=== PATIENT | male | born 1965 | race Caucasian/White ===

== ENCOUNTER 2021-07-30 06:24 | Inpatient (IN) | payer OTHER ==
[~2021-07-30] VITALS: Ht 182.9 cm; Wt 124.8 kg
--- NOTE | ~2021-07-30 | EMS ---
[address] [address] EMS Patient Care Report Name: CALVIN RODRIGUEZ Room #: 364-P ADM IN M.R.#: [id number] Admission: 07/30/21 Attend Phys: Cassi Morales MD Discharge: Date of : 63 Report #: [id number] THIS REPORT FOR: //name// Report Transmitted: 07/30/2021 12:34 EMS Care Summary [place], [place]/[facility] Incident [id number] @ 07/30/2021 05:46 Incident Location [address] [place] [address] Patient CALVIN RODRIGUEZ Male, 56 Years 1965 Patient Address [address] [place], [place] [id number] Patient History Other,Diabetes,Hypertension (HTN),Seizures,Hyperlipidemia,Gastro-Esophageal Reflux Disease (GERD),Anemia,Hypothyroidism,Anoxic Brain Injury, Patient Allergies Other drug allergy,Demerol, Patient Medications Glucagon, Lantus, Protonix, Acetaminophen, Zofran, Clonidine, Lisinopril, Levothyroxine, Novolog, Lipitor, Hydrocodone, Reglan, Chief Complaint hypoglycemia Disposition Transported No Lights/[place] Dispatch Reason Diabetic Problem Transported To [facility] Narrative pt was found unresponsive w/ BGL of 30, by [place] staff. staff states they gave pt [address] [address] EMS Patient Care Report Name: CALVIN RODRIGUEZ Room #: 364-P [facility]#: [id number] Admission: 07/30/21 Attend Phys: Cassi Morales MD Discharge: Date of : 63 Report #: [id number] 2 doses of glucagon IM and juice [employer]PERVIS[employer]. they state they took pt BGL just [employer] and it was 37. pt now has eyes open and is yelling. our BGL reads LO. staff reports pt is brittle diabetic and this happens frequently. IV attempt is unsuccessful. pt to cot, VS. pt alert enough to swallow approx 1/2 of oral glucose paste, then becomes nauseated and vomits a small amount. recheck pt BGL- 90. pt transport to [facility]. no other changes enroute. report to staff on arrival. Initial Vitals @06:10GCS: 12,Glucose: 90, @05:58P: 100,R: 20,BP: 170/100,GCS: 10,Glucose: -1,SpO2: 96,Revised Trauma: 11, Assessments @06:17MENTAL:Confused,Other,SKIN:Diaphoresis,HEENT:Eyes: Right: Constricted,Head/Face: Other,LUNG SOUNDS:General: Vomiting,ABDOMEN:General: Vomiting,PELVIS//GI:EXTREMITIES:PULSE:Radial: 2+ Normal,NEURO:@06:13MENTAL:Confused,Other,SKIN:No Abnormalities,HEENT:LUNG SOUNDS:ABDOMEN:PELVIS//GI:EXTREMITIES:PULSE:NEURO: Impression Diabetic Hypoglycemia Procedures @05:56 ALS Assessment Response: Unchanged @06:06 Stretcher Response: Unchanged @06:10 3-Lead ECG Response: Unchanged @06:02 IV Therapy - Saline Lock 0cc (22 ga) Site: Hand-Right Response: UnchangedFailed @06:11 Oral Glucose - 12 Grams (gms) - Oral Response: Unchanged Timeline 05:44,Call Received 05:44,Dispatch Notified 05:46,Dispatched 05:49,En Route 05:53,On Scene 05:56,At Patient 05:56,ALS Assessment,Response: Unchanged 05:58,BP: 170/100 M,PULSE: 100,RR: 20 R,SPO2: 96 Ox,ETCO2: ,BG: -1,PAIN: ,GCS: 10, 06:02,IV Therapy - Saline Lock 0cc 22 ga Site: Hand-Right,Response: UnchangedFailed, 06:06,Stretcher,Response: Unchanged 06:10,BP: / M,PULSE: ,RR: R,SPO2: Ox,ETCO2: ,B,PAIN: ,GCS: 12, 06:10,3-Lead ECG,Response: [place] [address] EMS Patient Care Report Name: CALVIN RODRIGUEZ Room #: 364-P ADM IN M.R.#: [id number] Admission: 07/30/21 Attend Phys: Cassi Morales MD Discharge: Date of : 63 Report #: [id number] 06:11,Oral Glucose - 12 Grams (gms) - Oral,Response: Unchanged 06:13,Depart Scene 06:21,At Destination 06:39,Call Closed Disclaimer v1.1 Copyright 2020 [employer] This EMS Care Summary contains data elements from the applicable legal record (which may be displayed differently). It is designed to provide pertinent information for the following purposes: continuity of care, clinical quality, and state data reporting. The complete legal record is available to ED staff and administrators of the receiving hospital in [facility]'s Patient Tracker. All data is provided "as is."
[2021-07-30 06:25] VITALS: BP 201/103
[2021-07-30 09:17] LABS: HEMATOCRIT 43.4 % (42.0-52.0); HEMOGLOBIN 13.9 gm/dL (14.0-18.0); MCH 29.1 pg (26.0-34.0); MCHC 32.1 g/dL (28.0-37.0); MCV 90.8 fL (80.0-100.0); PLATELET COUNT 325 thou/uL (150-400); RBC 4.78 mil/uL (4.50-6.00); RDW 14.1 % (10.5-14.5); WBC 24.8 thou/uL (4.0-11.0)
[2021-07-30 09:22] LABS: CALCIUM 9.1 mg/dL (8.5-10.1); CREATININE 0.9 mg/dL (0.7-1.3)
[2021-07-30 09:25] LABS: POTASSIUM 4.8 mmol/L (3.5-5.1)
[2021-07-30 09:48] LABS: URINE BILIRUBIN NEGATIVE (Negative); URINE BLOOD 1+ (Negative); URINE CLARITY CLEAR; URINE COLOR YELLOW; URINE GLUCOSE-RANDOM* NEGATIVE (Negative); URINE KETONES NEGATIVE (Negative); URINE LEUKOCYTES-REFLEX NEGATIVE (Negative); URINE NITRITE-REFLEX NEGATIVE (Negative); URINE PROTEIN (DIPSTICK) 3+ (Negative); URINE SPECIFIC GRAVITY 1.025 (1.005-1.035); URINE UROBILINOGEN 0.2 E.U./dl (0.2-1.0)
[2021-07-30 10:18] LABS: CASTS None Seen /LPF (None Seen); MUCUS None Seen strn/LPF (None Seen); SQUAMOUS 0-3 Few /LPF (0-3)
[2021-07-30 10:19] LABS: BACTERIA-REFLEX 1-9 Few /HPF (None Seen); CRYSTALS None Seen /LPF (None Seen); URINE RBC 1-2 Rare /HPF (NONE SEEN); URINE WBC-REFLEX 0-5 Rare /HPF (0-5)
[2021-07-30 12:45] VITALS: BP 154/56
[2021-07-30 12:46] LABS: ABSOLUTE NEUTROPHILS 21.6 thou/uL (1.4-8.2)
[2021-07-30 12:47] LABS: ANISOCYTOSIS SLIGHT
[2021-07-30 12:58] VITALS: BP 153/60
[2021-07-30] MEDS ORDERED: LIPITOR40 MG PO (13:30)
[2021-07-30] MEDS ORDERED: AMITRIPTYLINE H25 M2 PO (13:30)
[2021-07-30] MEDS ORDERED: ASA81BEC PO (13:30)
[2021-07-30] MEDS ORDERED: CALCIUM500 MG PO (13:31)
[2021-07-30] MEDS ORDERED: COLACE100 MG PO (13:32)
[2021-07-30] MEDS ORDERED: CLONIDINE HCL0.1 MG PO (13:32)
[2021-07-30] MEDS ORDERED: DEPAKOTE 250MG250 MG PO (13:34)
[2021-07-30] MEDS ORDERED: IMODIUM A-D2 M1 PO (13:35)
[2021-07-30] MEDS ORDERED: LANTUS SUBQ ×2 (13:36→13:37)
[2021-07-30] MEDS ORDERED: LINZESS290 MCG PO (13:40)
[2021-07-30] MEDS ORDERED: TOPROL XL50 MG PO (13:41)
[2021-07-30] MEDS ORDERED: LISINOPRIL10 MG PO (13:41)
[2021-07-30] MEDS ORDERED: ONDANSETRON HCL4 M3 PO (13:42)
[2021-07-30] MEDS ORDERED: PROTONIX40 M4 PO (13:43)
[2021-07-30] MEDS ORDERED: TRANSDERM-SCOP1 EACH PAD (13:44)
[2021-07-30] MEDS ORDERED: SYNTHROID25 MC1 PO (13:45)
[2021-07-30] MEDS ORDERED: CARAFATE 1 GM TA1 GM PO (13:45)
[2021-07-30] MEDS ORDERED: TYLENOL325 MG PO (13:46)
[2021-07-30 15:30] VITALS: BP 146/63
--- NOTE | 2021-07-30 17:58 | NUR ---
patient admit to unit from er. alert confused. expressive aphasia and right facal droop. vvs. having MRI of head now. will keep monitor.
[2021-07-30 19:20] VITALS: BP 146/66
[2021-07-31] VITALS (8 sets, daily range): BP systolic 125–142; BP diastolic 51–72
[2021-07-31 00:06] LABS: GLYCOHEMOGLOBIN (HGB A1C) 8.8 % (4.8-5.6)
--- NOTE | 2021-07-31 00:57 | NUR ---
BENCH ASSEMBLER called 07.30.2021 at 1913 for sx hypoglycemia. See BENCH ASSEMBLER flowsheet.
--- NOTE | 2021-07-31 07:05 | EKG ---
[address] [address] ELECTROCARDIOGRAM REPORT Name: CAVLIN RODRIGUEZ Room #: 364-P ADM IN M.R.#: [id number] Admission: 07/30/21 Attend Phys: Cassi Morales MD Discharge: Date of : 63 Report #: [id number] [facility] ED Test Date: 2021-07-30 Test Time: 12:49:21 Pat Name: CALVIN RODRIGUEZ Department: Room: 364 Gender: M Hand Alterations Tailor: cw : 1965 Requested By: Ren Mota Order Number: [id number] MD: Carlos Michaud Measurements Intervals [place] Rate: 94 P: 76 AK: 135 QRS: 84 QRSD: 83 T: 72 QT: 355 QTc: 444 Interpretive Statements Sinus rhythm No previous ECG available for comparison Electronically Signed On 07-31-2021 7:05:01 RN HOUSE SUPERVISOR by Carlos Michaud [email or web address] <ELECTRONICALLY SIGNED> By: Carlos Michaud MD, [facility] 07/31/21 0705 1249 1249 Carlos Michaud MD, FACC /EPI
--- NOTE | 2021-07-31 11:47 | NUR ---
A #4F BIOFLO MIDLINE WAS PLACED PER HOSPITAL POLICY AFTER DISCUSSING PROCEDURE, BENIFITS AND RISKS WITH THE PATIENT. VERBAL CONSENT OBTAIN. THE MIDLINE WAS TRIMMED TO 14CM AND ADVANCED WITHOUT DIFFICULTY. THE LINE WAS SECURED AND RELEASED FOR USE
[2021-07-31 16:27] LABS: ABSOLUTE NEUTROPHILS 10.5 thou/uL (1.4-8.2); BASOPHILS 0.4 % (0.0-2.0); HEMATOCRIT 37.6 % (42.0-52.0); LYMPHOCYTES 6.9 % (24.0-44.0); MCH 29.3 pg (26.0-34.0); MCHC 31.8 g/dL (28.0-37.0); MCV 92.2 fL (80.0-100.0); MONOCYTES 1.6 % (1.0-8.0); POLYS 91.1 % (36.0-66.0); RBC 4.08 mil/uL (4.50-6.00); RDW 14.1 % (10.5-14.5); WBC 11.5 thou/uL (4.0-11.0)
--- NOTE | 2021-07-31 16:30 | NUR ---
RN ASSUMED PT'S CARE AT 0700AM , PT IS A&OX3 ( PERSON , PLACE AND TIME), PT CAN FOLLOW COMMANDS, PT IS ON ROOM AIR, PT'S VS ARE STABLE, RN HAS CALLED DR TO REPORT PT'S BS AT 300-400, PT'S D10 IV WATER IS ON HOLD NOW, SEIZURE PRECAUTIONS ARE IN PLACE.
[2021-07-31 16:31] LABS: PLATELET COUNT 225 thou/uL (150-400)
[2021-07-31 16:32] LABS: HEMOGLOBIN 11.9 gm/dL (14.0-18.0)
[2021-07-31 16:42] LABS: ALBUMIN 2.5 g/dL (3.4-5.0); CREATININE 1.7 mg/dL (0.7-1.3); MAGNESIUM 1.8 mg/dL (1.8-2.4); POTASSIUM 4.9 mmol/L (3.5-5.1); TOTAL BILIRUBIN 0.7 mg/dL (0.2-1.0); TOTAL PROTEIN 6.1 g/dL (6.4-8.2)
--- NOTE | 2021-07-31 18:52 | NUR ---
PROGRESS PT ORIENTATION LEVEL BACK TO BASELINE PER FAMILY. ANSWERS QUESTIONS APPROPRIATELY ORIENTED TO SELF, SITUATION, AND PLACE. ACCUCHECKS Q1HR X 4 WNL AND ACCUCHECKS Q2 X 3 ALL WNL. D10 INFUSING AT 100CC/HR IN TO LEFT FOOT IV. UP WITH SBA TO USE URINAL VOIDING QS. REPOSITIONS SELF IN BED LAYS WITH BLANKETS OVER HEAD. TELEMETRY INTACT READING SR. CONTINUE TO MONITOR
[2021-07-31 20:47] LABS: HEMATOCRIT 36.4 % (42.0-52.0); HEMOGLOBIN 11.6 gm/dL (14.0-18.0)
[2021-08-01] VITALS (8 sets, daily range): BP systolic 120–146; BP diastolic 69–79
[2021-08-01 00:27] LABS: CALCIUM 8.2 mg/dL (8.5-10.1); CREATININE 1.7 mg/dL (0.7-1.3); MAGNESIUM 1.9 mg/dL (1.8-2.4); PHOSPHORUS 3.2 mg/dL (2.6-4.7); POTASSIUM 4.2 mmol/L (3.5-5.1)
--- NOTE | 2021-08-01 00:52 | NUR ---
PT ALERT AND ORIENTED X2. PERSON AND SITUATION. HE IS OFTEN IRRITABLE. CHECKING BS Q 1 HR. PT ON INSULIN DRIP. TITRATING ORDERED. VSS AFEBRILE SATS WNL. FALL AND SEIZURE PRECAUTIONS ARE IN PLACE. NO C/O PAIN. BED DOWN. CALL LIGHT IN REACH. BED ALARM IS ON. SIDERAILS PADDED. PT MOVED TO A CLOSER TO THE DESK 361.
[2021-08-01 07:13] LABS: ABSOLUTE NEUTROPHILS 10.8 thou/uL (1.4-8.2); BASOPHILS 1.3 % (0.0-2.0); EOSINOPHILS 0.1 % (0.0-3.0); HEMATOCRIT 35.1 % (42.0-52.0); HEMOGLOBIN 11.4 gm/dL (14.0-18.0); LYMPHOCYTES 18.9 % (24.0-44.0); MCH 29.3 pg (26.0-34.0); MCHC 32.4 g/dL (28.0-37.0); MCV 90.3 fL (80.0-100.0); MONOCYTES 4.7 % (1.0-8.0); PLATELET COUNT 261 thou/uL (150-400); RBC 3.89 mil/uL (4.50-6.00); RDW 14.1 % (10.5-14.5); WBC 14.5 thou/uL (4.0-11.0)
[2021-08-01 07:30] LABS: CREATININE 1.4 mg/dL (0.7-1.3); PHOSPHORUS 2.4 mg/dL (2.6-4.7)
--- NOTE | 2021-08-01 19:49 | NUR ---
RN ASSUMED PT'S CARE AT 0700-1900PM, PT IS A&OX3 ( PERSON, PLACE AND TIME), PT IS CONTINUING BS MANAGEMENT BY INSULIN , PT'S INSILIN DRIP HAS CHANGED TO SQ, RN HAS CALLED DR TO REPORT PT'S BS 410 AT 1500PM, NEW ORDER , PT RESTARTS INSULN DRIP AT 1600PM, BUT PT'S INSILIN DOSE IS TITRATE Q1HR AT EACT TIME CALL DR FOR INSTRUCTION , PT IS RUNNING INSULIN 6UNITS/HR AT 1700PM FOR BS 255, PT'S INSULIN DRIP IS RUNNING 8NUITS/HR FOR BS 274 AT 1800PM, RN HAS REPORTED TO NEXT SHIFT TO CHECK BS 8PM , THEN CALL RESULTS . PT 'S JOHNSTON CATHETER HAS DC, PT IS DENIES PAIN AND SOB AT DAY SHIFT.
--- NOTE | 2021-08-01 22:44 | NUR ---
PT ALERT AND ORIENTED X3. IRRITABLE AT TIMES. TITRATED INSULIN DRIP OFF. NPH GIVEN ORDERED.LAST BS 88. PT REFUSED A SNACK. WILL RECHECK BS AT 2300. FALL PRECAUTIONS IN PLACE. NS AT 75 INFUSING R ARM.
--- NOTE | 2021-08-01 23:55 | NUR ---
NOTIFIED RETENTION REPRESENTATIVE BS DROPPED TO 60. PT HAD SNACK WITH MILK AND JUICE. AND BS CONINUED TO GOT DOWN TO 55. 1 AMP D50 GIVEN ORDERED. WILL RECHECK. PT ALERT AND FOLLOWING COMMANDS
--- NOTE | 2021-08-02 01:13 | NUR ---
NOTIFIED METER READER CHIEF OF BS 320. WILL RECHECKAT 2 AM AND CALL RESULTS.
[2021-08-02 04:19] VITALS: BP 140/65
[2021-08-02 04:30] VITALS: BP 140/65
[2021-08-02 05:25] LABS: ABSOLUTE NEUTROPHILS 9.9 thou/uL (1.4-8.2); BASOPHILS 0.7 % (0.0-2.0); EOSINOPHILS 0.1 % (0.0-3.0); HEMATOCRIT 34.9 % (42.0-52.0); HEMOGLOBIN 11.3 gm/dL (14.0-18.0); MCH 29.3 pg (26.0-34.0); MCHC 32.3 g/dL (28.0-37.0); MCV 90.6 fL (80.0-100.0); MONOCYTES 7.8 % (1.0-8.0); PLATELET COUNT 246 thou/uL (150-400); POLYS 69.4 % (36.0-66.0); RBC 3.85 mil/uL (4.50-6.00); RDW 13.6 % (10.5-14.5); WBC 14.3 thou/uL (4.0-11.0)
[2021-08-02 05:37] LABS: ALBUMIN 2.3 g/dL (3.4-5.0); CALCIUM 7.7 mg/dL (8.5-10.1); CREATININE 1.1 mg/dL (0.7-1.3); MAGNESIUM 2.1 mg/dL (1.8-2.4); PHOSPHORUS 1.5 mg/dL (2.6-4.7); POTASSIUM 4.3 mmol/L (3.5-5.1); TOTAL BILIRUBIN 0.3 mg/dL (0.2-1.0); TOTAL PROTEIN 5.5 g/dL (6.4-8.2)
--- NOTE | 2021-08-02 07:28 | NUR ---
PT OFF INSULIN DRIP . CONTINUED TO CHECK BS Q 1 HR DUE TO BS RANGING FROM 55 -320 AFTER NPH STARTED ORDERED. TREATED BS X2 WHILE IN THE 300S PER RADIOTELEPHONE OPERATOR ORDER. LAST BS 217. NO C/O PAIN. NO S/S DISTRESS PRESENTLY. NS STILL INFUSING AT 75. ALL PRECAUTIONS REMAIN IN PLACE.
[2021-08-02 07:59] VITALS: BP 143/80
[2021-08-02] MEDS ORDERED: FLOMAX0.4 MG PO (09:51)
[2021-08-02] MEDS ORDERED: HUMALOG100 UNIT/1 SUBQ (09:52)
[2021-08-02] MEDS ORDERED: HUMULIN N100 UNIT/1 SUBQ (09:52)
[2021-08-02 11:42] VITALS: BP 142/74
--- NOTE | 2021-08-02 14:03 | NUR ---
INITIAL ASSESSMENT/DISCHARGE NOTE: LIVE reviewed chart and spoke with nursing and attending physician. Pt was admitted from [facility] due to hypoglycemia. Pt is medically stable for discharge back to the facility today. LIVE faxed clinical info and discharge ppwk to [facility] post-acute liaison. Confirmed info was received. Wheelchair van transportation is scheduled for [id number] per facility's arrangements. LIVE spoke wiht pt's mother, Max, via phone to provide update and discuss discharge plan. Pt's mother is agreeable with discharge plan. All questions answered. Chart copy requested. Nursing provided with number to call report. No additional SW needs identified at this time. SW is available to assist should needs arise.
--- NOTE | 2021-08-02 18:07 | NUR ---
PT ALERT AND ORIENTED X2, NON COMPLIANT WITH CARE AT TIMES. MIDLINE AND TELE D/C. PT DRESSED BACK IN HIS PERSONAL CLOTHES. PT STATED HE HAD HIS WALLET UPON ADMISSION, COULDNT FIND PT WALLET IN HIS ROOM OR HIS BELONGINGS. CALLED DOWN TO SECURITY AND ER, NO WALLET WAS FOUND. CALLED PT FACILITY AND THEY WILL CHECK PT ROOM WHEN HE ARRIVES TO SEE IF HIS WALLET WAS IN THERE. REPORT GIVEN TO NURSE RODRIGUEZ. TRANSPORTATION HERE FOR PT
== END 2021-08-02 18:09 | DRG 871 ==
LOC: ER 06:24 → 3W 12:42 → EROBS 12:42 → 3W 12:58
PROVIDERS: Emergency Medicine; Nurse Practitioner; ADMIT Internal Medicine; ATTEND Internal Medicine
DX: A41.9 Sepsis, unspecified organism (principal); J18.9 Pneumonia, unspecified organism; E10.649 Type 1 diabetes mellitus with hypoglycemia without coma; R33.9 Retention of urine, unspecified; K59.09 Other constipation; E03.9 Hypothyroidism, unspecified; G40.909 Epilepsy, unspecified, not intractable, without status epilepticus; Z79.4 Long term (current) use of insulin; Z20.822 Contact with and (suspected) exposure to COVID-19; F41.9 Anxiety disorder, unspecified
CPT/HCPCS: 10879; 27000